=== PATIENT | male | born 1960 | race Caucasian/White ===

== ENCOUNTER 2016-03-23 10:34 | Emergency (ER) | payer SELFPAY ==
[~2016-03-23] VITALS: Ht 182.9 cm; Wt 100.0 kg
[2016-03-23 11:12] VITALS: BP 118/84; PULSE 72; RESP 18; TEMP 98; O2SAT 95
[2016-03-23] MEDS ORDERED: ANAC400T PO (11:24)
[2016-03-23] MEDS ORDERED: ZOCO10TA PO (11:24)
[2016-03-23] MEDS ORDERED: SODIUM CHLORIDE 0.9% FLUSH 5 ML FLUSH IVF PRN (11:45)
--- NOTE | 2016-03-23 11:57 | PD ---
HPI Chief Complaint: General Weakness Stated Complaint: LIGHT HEADED Time Seen by Provider: 11:51 Travel History International Travel<30 days: No Contact w/Intl Traveler<30days: No Known affected area: No History of Present Illness HPI 55-year-old male with PMH of GERD and HLD presents to the ED for evaluation of 3 day history of generalized weakness and episodic dizziness. Patient can identify no alleviating or exacerbating factors. He endorses "3 or 4" episodes of dizziness. Described as intermittent, lasting less than a minute, resolving spontaneously. He also complains of tightness of the chest this morning. He denies headache, vision changes, chest pain, palpitations, diaphoresis, SOB, ESTRADA. He denies ear pain, sinus congestion, rhinorrhea, cough, abdominal pain, N /V, changes in bowel habits, BRBPR, dark tarry stools or dysuria. Endorses 15 year history of smoking 2 cigars per week. States both parents had defibrillators placed by age 62. He had an upper endoscopy approximately 2 years ago, which he states was "normal." History Social History Alcohol Use: Yes Tobacco Use: Yes (2x weekly) Allergies-Medications (Allergen,Severity, Reaction): Coded Allergies: No Known Allergies (Unverified , 03/23/16) Reported Meds & Prescriptions Reported Meds & Active Scripts Active Reported Anacin (Aspirin-Caffeine) 400-32 Mg Tab PO DIRECTED Zocor (Simvastatin) 10 Mg Tab 10 Mg PO DAILY Review of Systems Except as stated in HPI: all other systems reviewed are Neg Physical Exam Narrative GENERAL: Well-nourished, well-developed white male in no acute distress. SKIN: Warm and dry. HEAD: Normocephalic. Atraumatic. EYES: No scleral icterus. No injection or drainage. PERRLA. EOMI. ENT: Pearly stroud tympanic membranes bilaterally. Nasal mucosa is moist. Oropharynx without erythema, edema or exudate. NECK: Supple, trachea midline. No JVD or lymphadenopathy. CARDIOVASCULAR: Regular rate and rhythm without murmurs, gallops, or rubs. No carotid bruits. 2+ DP and radial pulses bilaterally. RESPIRATORY: Breath sounds clear and equal bilaterally. No accessory muscle use. GASTROINTESTINAL: Abdomen soft, non-tender, nondistended. + Bowel sounds MUSCULOSKELETAL: No cyanosis, or edema. Full, active range of motion. Strength 5/5. Neurovascularly intact. BACK: Nontender without obvious deformity. No CVA tenderness. Data Data Last Documented VS Vital Signs Date Time Temp Pulse Resp B/P Pulse Ox O2 Delivery O2 Flow Rate FiO2 03/23/16 11:12 98.0 72 18 118/84 95 Orders Complete Blood Count With Diff (03/23/16 11:15) Comprehensive Metabolic Panel (03/23/16 11:15) Electrocardiogram (03/23/16 ) Urinalysis - C+S If Indicated (03/23/16 11:15) Ckmb (Isoenzyme) Profile (03/23/16 11:43) Magnesium (Mg) (03/23/16 11:43) Prothrombin Time / Inr (Pt) (03/23/16 11:43) Act Partial Throm Time (Ptt) (03/23/16 11:43) Troponin I (03/23/16 11:43) Chest, Single Ap (03/23/16 11:43) Sodium Chloride 0.9% Flush (Ns Flush) (03/23/16 11:45) Ct Brain W/O Iv Contrast(Rout) (03/23/16 11:57) CKMB (03/23/16 11:50) CKMB% (03/23/16 11:50) Labs Laboratory Tests Test 03/23/16 03/23/16 11:50 12:10 White Blood Count 4.6 TH/MM3 Red Blood Count 5.03 MIL/MM3 Hemoglobin 15.3 GM/DL Hematocrit 44.9 % Mean Corpuscular Volume 89.4 FL Mean Corpuscular Hemoglobin 30.4 PG Mean Corpuscular Hemoglobin 34.0 % Concent Red Cell Distribution Width 12.6 % Platelet Count 228 TH/MM3 Mean Platelet Volume 9.5 FL Neutrophils (%) (Auto) 56.8 % Lymphocytes (%) (Auto) 27.8 % Monocytes (%) (Auto) 11.7 % Eosinophils (%) (Auto) 2.8 % Basophils (%) (Auto) 0.9 % Neutrophils # (Auto) 2.6 TH/MM3 Lymphocytes # (Auto) 1.3 TH/MM3 Monocytes # (Auto) 0.5 TH/MM3 Eosinophils # (Auto) 0.1 TH/MM3 Basophils # (Auto) 0.0 TH/MM3 CBC Comment DIFF FINAL Differential Comment Prothrombin Time 10.8 SEC Prothromb Time International 1.0 RATIO Ratio Activated Partial 26.1 SEC Thromboplast Time Sodium Level 136 MEQ/L Potassium Level 4.3 MEQ/L Chloride Level 103 MEQ/L Carbon Dioxide Level 27.3 MEQ/L Anion Gap 6 MEQ/L Blood Urea Nitrogen 13 MG/DL Creatinine 1.01 MG/DL Estimat Glomerular Filtration 77 ML/MIN Rate Random Glucose 103 MG/DL Calcium Level 8.8 MG/DL Magnesium Level 2.5 MG/DL Total Bilirubin 0.5 MG/DL Aspartate Amino Transf 27 U/L (AST/SGOT) Alanine Aminotransferase 54 U/L (ALT/SGPT) Alkaline Phosphatase 66 U/L Total Creatine Kinase 210 U/L Creatine Kinase MB 1.3 NG/ML Troponin I LESS THAN 0.02 NG/ML Total Protein 8.0 GM/DL Albumin 4.4 GM/DL Urine Color YELLOW Urine Turbidity CLEAR Urine pH 6.0 Urine Specific Jackson 1.011 Urine Protein NEG mg/dL Urine Glucose (UA) NEG mg/dL Urine Ketones NEG mg/dL Urine Occult Blood NEG Urine Nitrite NEG Urine Bilirubin NEG Urine Urobilinogen LESS THAN 2.0 MG/DL Urine Leukocyte Esterase NEG Urine RBC LESS THAN 1 /hpf Urine WBC LESS THAN 1 /hpf Urine Squamous Epithelial <1 /hpf Cells Microscopic Urinalysis Comment CULT NOT INDICATED MDM Medical Decision Making Medical Screen Exam Complete: Yes Emergency Medical Condition: Yes Differential Diagnosis Anemia versus electrolyte abnormality versus hyper/hypotension versus UTI versus dysrhythmia versus ACS versus viral syndrome versus ICH versus other Narrative Course 55-year-old male with PMH of GERD and HLD presents to the ED for evaluation of 3 day history of generalized weakness and "3 or 4" episodes of dizziness. Described as intermittent, lasting less than a minute, resolving spontaneously. He also complains of tightness of the chest this morning. He denies headache, vision changes, chest pain, palpitations, diaphoresis, SOB, ESTRADA, ear pain, sinus congestion, rhinorrhea, cough, abdominal pain, N/V, changes in bowel habits, BRBPR, dark tarry stools. Endorses 15 year history of smoking 2 cigars per week. States both parents had defibrillators placed by age 60. He had an upper endoscopy approximately 2 years ago, which he states was "normal." Vitals reviewed. Physical exam is unremarkable. CBC: WBC 4.6. Hemoglobin 15.3. INR 1.0. Chemistry unremarkable. Magnesium 2.5. EKG rate 64, sinus rhythm. MA interval 181. QRS 87. QTC 41. Normal axis. No ischemic changes. Reviewed by Dr. Garcia. Troponin <0.02 CK-MB 1.3 No culture indicated of the UA. Patient refused CT of the brain. I discussed this patient and the workup with . He recommends admission to the chest pain center for serial EKGs and cardiac enzymes. I discussed this plan of care with the patient. He refuses this admission at this time. He states that he had outpatient imaging of the head and neck ~18 months ago. He would like to review these as well as the results of today's workup with his PCP before undergoing additional evaluation. I explained the dangers of leaving without a full evaluation, up to and including . The patient indicated understanding of these dangers, but chose to leave AGAINST MEDICAL ADVICE. Diagnosis Primary Impression: Weakness Additional Impressions: Dizziness Chest tightness Disposition: 07 AGAINST MEDICAL ADVICE Condition: Stable Raine Barlow Mar 23, 2016 11:57
--- NOTE | 2016-03-23 12:11 | RADRPT ---
EXAM DATE/TIME: 03/23/2016 11:44 [facility] COMPARISON: No previous studies available for comparison. INDICATIONS : Patient has had tightness in chest since this morning. MEDICAL HISTORY : None. SURGICAL HISTORY : None. ENCOUNTER: Initial ACUITY: 1 day PAIN SCORE: 0/10 LOCATION: Bilateral chest FINDINGS: A single view of the chest demonstrates the lungs to be symmetrically aerated without evidence of mas s, infiltrate or effusion. The cardiomediastinal contours are unremarkable. Osseous structures are intact. CONCLUSION: No acute intrathoracic disease. Martin Munoz MD on March 23, 2016 at 12:09 Board Certified Radiologist. This report was verified electronically.
[2016-03-23 12:17] LABS: AUTOMATED NEUTROPHIL # 2.6 TH/MM3 (1.8-7.7); BASOPHIL % 0.9 % (0.0-2.0); EOSINOPHIL # 0.1 TH/MM3 (0-0.4); EOSINOPHIL % 2.8 % (0.0-4.0); HEMATOCRIT 44.9 % (39.0-51.0); HEMO FLAGS DIFF FINAL; LYMPH % 27.8 % (9.0-44.0); LYMPHOCYTE # 1.3 TH/MM3 (1.0-4.8); MEAN CELL VOLUME 89.4 FL (80.0-100.0); MEAN CORPUSCULAR HEMOGLOBIN 30.4 PG (27.0-34.0); MONO % 11.7 % (0.0-8.0); NEUT % 56.8 % (16.0-70.0); PLATELET COUNT 228 TH/MM3 (150-450); RED BLOOD COUNT 5.03 MIL/MM3 (4.50-5.90); RED CELL DISTRIBUTION WIDTH 12.6 % (11.6-17.2); WHITE BLOOD COUNT 4.6 TH/MM3 (4.0-11.0)
[2016-03-23 12:29] LABS: APTT (PATIENT) 26.1 SEC (24.3-30.1); PROTHROMBIN TIME - PATIENT 10.8 SEC (9.8-11.6)
[2016-03-23 12:39] LABS: ALT (GPT) 54 U/L (12-78); ANION GAP 6 MEQ/L (5-15); AST (GOT) 27 U/L (15-37); BICARBONATE 27.3 MEQ/L (21.0-32.0); BLOOD UREA NITROGEN 13 MG/DL (7-18); CHLORIDE 103 MEQ/L (98-107); GLOMERULAR FILTRATION RATE 77 ML/MIN (>89); POTASSIUM 4.3 MEQ/L (3.5-5.1); SODIUM (NA) 136 MEQ/L (136-145)
[2016-03-23 12:41] LABS: ALKALINE PHOSPHATASE 66 U/L (45-117); TOTAL BILIRUBIN ADULT 0.5 MG/DL (0.2-1.0)
[2016-03-23 12:42] LABS: CREATINE KINASE 210 U/L (39-308); MAGNESIUM 2.5 MG/DL (1.5-2.5)
[2016-03-23 12:54] LABS: CKMB 1.3 NG/ML (0.5-3.6)
[2016-03-23 13:17] LABS: BLOOD, URINE NEG (NEG); GLUCOSE,URINE NEG (NEG); KETONE, URINE NEG (NEG); NITRITE,URINE NEG (NEG); SQUAMOUS EPITHELIAL CELL URINE <1 /hpf (0-5); URINE COLOR YELLOW (YELLW/STRAW)
[2016-03-23 13:20] LABS: COMMENT (UR) CULT NOT INDICATED; CULTURE IF INDICATED CULT NOT INDICATED
--- NOTE | 2016-03-24 12:06 | EKG ---
Date Performed: 03/23/2016 Time Performed: 11:34:36 PTAGE: 55 years EKG: Sinus rhythm NORMAL ECG NO PREVIOUS TRACING DOCTOR: Bhavik Barnes Interpretating Date/Time 03/24/2016 12:06:03
== END 2016-03-23 14:15 | disposition left against medical advice (07) ==
LOC: NETRI 10:34
DX: R53.1 Weakness (principal); R42 Dizziness and giddiness; R07.89 Other chest pain; K21.9 Gastro-esophageal reflux disease without esophagitis; E78.5 Hyperlipidemia, unspecified; F17.290 Nicotine dependence, other tobacco product, uncomplicated; Z79.899 Other long term (current) drug therapy
CPT/HCPCS: 71010; 80053; 81001; 82550; 82552; 83735; 84484; 85025; 85610; 85730; 93005